=== PATIENT | male | born 1950 | race Caucasian/White ===

== ENCOUNTER 2018-09-01 08:51 | Inpatient (IN) ==
[2018-09-01] MEDS ORDERED: ZOFRAN IV ONE (11:47)
[2018-09-01] MEDS ORDERED: M.V.I.-12 10 ML, FOLIC ACID 1 MG, MAGNESIUM SULFATE 1 GM, THIAMINE 100 MG in NS 1,000 ML IV ONE (11:47)
[2018-09-01] MEDS ORDERED: DILAUDID IV ONE (11:47)
--- NOTE | 2018-09-01 12:22 | Diag Imaging Result Doc PS360 ---
EXAM: CHEST-PORTABLE 09/01/2018 HISTORY: FALL TECHNIQUE: AP portable at 1209 COMMENT: There is no evidence of acute cardiac or pulmonary disease. There are no previous studies available for comparison. IMPRESSION: No acute disease. Electronically signed by Mike Grove 09/01/2018 12:20 PM
--- NOTE | 2018-09-01 12:23 | Diag Imaging Result Doc PS360 ---
EXAM: XRAY PELVIS W/HIP 2-3VW RT 09/01/2018 HISTORY: fall TECHNIQUE: AP pelvis and right hip three views COMMENT: There is osteoporosis. There is an intertrochanteric fracture of the right femur. This is not significantly displaced. There is some stool in the rectum. IMPRESSION: Intertrochanteric fracture on the right. Electronically signed by Mike Grove 09/01/2018 12:21 PM
--- NOTE | 2018-09-01 12:31 | EKG Report ---
Test Performed on : 09/01/2018 09:40:25 AM Test Reason : FALL Blood Pressure : / mmHG Vent. Rate : 065 BPM Atrial Rate : 065 BPM P-R Int : 144 ms QRS Dur : 064 ms QT Int : 392 ms P-R-T Axes : 051 -39 068 degrees QTc Int : 407 ms Normal sinus rhythm. Left axis deviation Low voltage QRS Septal infarct , age undetermined Abnormal ECG No previous ECGs available Unconfirmed Result
[2018-09-01 12:44] LABS: URINE SOURCE CLEAN CATCH
[2018-09-01 12:50] LABS: BASO# 0.05 X1000 (0.0-0.2); BASO% 0.6 % (0.0-0.8); EOS# 0.06 X1000 (0.0-0.7); EOS% 0.7 % (0.0-10.0); HEMATOCRIT 42.2 % (42.0-52.0); HEMOGLOBIN 15.4 g/dL (14.0-18.0); IMM GRAN# 0.02 X1000 (0.0-0.04); IMM GRAN% 0.2 % (0.0-0.5); LYMPH# 1.43 X1000 (1.2-3.4); LYMPH% 16.5 % (20.5-51.1); MCH 32.5 PG (27-31); MCHC 36.5 g/dL (33-37); MONO# 0.65 X1000 (0.11-0.59); MONO% 7.5 % (1.7-9.3); MPV 9.8 FL (7.4-10.4); NEUT# 6.45 X1000 (1.4-6.5); NEUT% 74.5 % (42.2-75.2); PLT 209 X1000 (130-400); RBC 4.74 XMIL (4.7-6.1); RDW 12.9 % (11.5-14.5); WBC 8.66 X1000 (4.8-10.8)
[2018-09-01 12:51] LABS: BILIRUBIN URINE NEGATIVE (NEGATIVE); BLOOD URINE NEGATIVE (NEGATIVE); COLOR YELLOW; GLUCOSE URINE NEGATIVE (NEGATIVE); KETONE URINE 40 mg/dL (NEGATIVE); LEUKOCYTES URINE NEGATIVE (NEGATIVE); NITRITE URINE NEGATIVE (NEGATIVE); PH URINE 6.5; PROTEIN URINE NEGATIVE (NEGATIVE); TURBIDITY URINE CLEAR (CLEAR); UROBILINOGEN URINE NORMAL (NORMAL)
[2018-09-01 12:52] LABS: UR EPITHELIAL CELLS <10 /HPF (<10); URINE BACTERIA NEGATIVE /HPF; URINE RBC <10 /HPF (<10); URINE WBC <10 /HPF (<10)
[2018-09-01 13:01] LABS: UR AMPHETAMINES QUAL NONE DETECTED (NONE DETECT); UR BARBITUATES QUAL NONE DETECTED (NONE DETECT); UR BENZODIAZEPIN QUAL NONE DETECTED (NONE DETECT); UR CANNABINOIDS QUAL NONE DETECTED (NONE DETECT); UR COCAINE QUAL NONE DETECTED (NONE DETECT); UR METHADONE QUAL NONE DETECTED (NONE DETECT); UR OPIATES QUAL NONE DETECTED (NONE DETECT); UR OXYCODONE QUAL NONE DETECTED (NONE DETECT); UR PCP QUAL NONE DETECTED (NONE DETECT)
[2018-09-01 13:11] LABS: INR 0.93; PROTIME 13.3 Seconds (11.0-16.0)
[2018-09-01 13:12] LABS: AGAP 13; ALB/GLOB RATIO 1.3; ALBUMIN 4.1 g/dL (3.5-5.0); ALKALINE PHOSPHATASE 93 U/L (32-122); BUN 7 mg/dL (8-22); CHLORIDE 96 mmol/L (98-107); COSMO 263; CREATININE 0.7 mg/dL (0.7-1.2); ESTIMATED GFR > 60; GLUCOSE 108 mg/dL (70-104); GOT 46 U/L (10-34); GPT 43 U/L (10-44); MAGNESIUM 2.1 mg/dL (1.5-2.7); POTASSIUM 4.4 mmol/L (3.5-5.1); PTT 32.1 Seconds (22.3-41.8); SODIUM 132 mmol/L (136-145); TCO2 23 mmol/L (25-35); TOTAL PROTEIN 7.2 g/dL (6.3-8.3)
[2018-09-01] MEDS ORDERED: NICODERM PATCH TD ONE (13:20)
--- NOTE | 2018-09-01 13:22 | PROVIDER DOCUMENTATION ---
This chart was entered by Jackeline Hardy Scribe, acting as scribe for Gerry Lainez MD. HPI-Musculoskeletal Pain/Inj - GENERAL Chief Complaint: Fall Stated Complaint: FALL LAST NIGHT, RT HIP PAIN Time Seen by Provider: 09/01/18 11:36 Source: patient - HX OF PRESENT ILLNESS-MUSKULOSKELTAL Nature of Presenting Problem: Patient is a 68 year old male who presents to the ED via EMS with right hip pain after having a fall last night around 0. Report he was drinking last night and got up to use the restroom and fell landing on right hip. States he could not get up from the floor. Report numbness in bilateral feet. Denies back pain. Does not report head injury. Patient states his last ETOH drink was last night at 1900. Quality of Pain: reports: aching Severity in ED: mild Onset/Duration: last night (1899) Timing: still present Modifying Factors: improves with: nothing Any recent injury?: Yes (fall) Locality of Occurance: Home Similar Symptoms Previously?: Yes (present since last night ) Recently seen or treated by another doctor?: No - FALL INJURY Location of Pain/Injury: reports: other (right hip) Pain Radiation: reports: no radiation Reason for Fall: reports: unknown Symptoms prior to fall:: reports: none Loss of Consciousness: no loss of consciousness Injury Associated Symptoms: reports: unable to bear weight, trouble walking, other (numbness to bilateral feet) - HIP/PELVIS PAIN/INJURY Hip Pain Location: reports: hip (R) Pain Radiation: reports: no radiation Context / Method of Injury: reports: fall Associated Symptoms: reports: numbness in legs/feet (bilateral feet) - LOWER EXTREMITY PAIN/INJURY Lower Extremities Pain: hip: right Context / Method of Injury: reports: fell Associated Symptoms: reports: numbness in legs/feet (bilateral feet) Review of Systems - Adult - REVIEW OF SYSTEMS - ADULT Constitutional: reports: no symptoms reported. denies: chills, fever, fatique Eyes: reports: no symptoms reported Ears, Nose, Mouth & Throat: reports: no symptoms reported Cardiovascular: reports: no symptoms reported Respiratory: reports: no symptoms reported Gastrointestinal: reports: no symptoms reported Genitourinary: reports: no symptoms reported Musculoskeletal: reports: see HPI, other (right hip pain). denies: back pain, muscle aches, neck pain Integumentary: reports: no symptoms reported Neurological: reports: see HPI, numbness (bilateral feet). denies: dizziness/vertigo, headache/migraines, syncope Psychiatric: reports: no symptoms reported Endocrine: reports: no symptoms reported Hematologic/Lymphatic: reports: no symptoms reported Allergic/Immunologic: reports: no symptoms reported All Other Systems: Reviewed and Negative Past History - Adult - PAST MEDICAL HISTORY-ADULT Review of Records: reports: Nursing Assessment Review, Medications Reviewed, Social history reviewed & non-contributory. Major Childhood Illnesses: reports: denies history Cardiovascular: reports: denies history Respiratory: reports: denies history Gastrointestinal: reports: denies history Obstetrical/Gynecological: reports: denies history Genitourinary: reports: denies history Musculoskeletal: reports: denies history Neurological: reports: denies history Psychiatric: reports: denies history Endocrine/Immune: reports: denies history Other Conditions: reports: denies history - PRIOR SURGERIES/PROCEDURES Surgical/Procedure History: reports: reviewed, not pertinent, tonsillectomy - IMMUNIZATION STATUS Childhood Immunizations: See Nurse Assessment Flu Vaccine: See Nurse Assessment - FAMILY HISTORY Family History: reviewed, not pertinent - SOCIAL HISTORY Smoking: cigarettes, greater than 1 pack/day Provider spent 3-5 mins advising pt. on dangers of tobacco.: Discussed manners to quit use, and f/u contacts for add'l counseling. Substance Use: alcohol Alcohol Use Frequency: every day Number of drinks per typical drinking period:: 5-10 drinks Living Situation: alone Physical Exam-Injury Related - Physical Exam-Injury Related Initial Vital Signs Reviewed: Yes General Appearance: alert, no apparent distress. negative: lethargic, slow to respond Head, Ears, Nose, Mouth & Throat: moist mucous membranes. negative: angioedema, hearing deficit Respiratory: chest non-tender, lungs clear, normal breath sounds. negative: rhonchi, wheezing Cardiovascular: normal peripheral pulses, regular rate, rhythm. negative: tachycardia, systolic murmur Abdominal Exam: normal bowel sounds, non tender, soft. negative: guarding, rebound Back Exam: normal inspection, no CVA tenderness, no vertebral tenderness. negative: ecchymosis, muscle spasm Extremity: tenderness (right hip), other (decreased ROM to right hip due to pain). negative: erythema, swelling Integumentary: normal color, warm/dry. negative: ecchymosis, erythema, jaundice Neurologic: grossly normal. negative: aphasia, facial droop Psych/Mental Status: normal mood/affect, oriented x 3. negative: paranoid, tearful Progress - PLAN OF CARE/RESULTS Progress/Plan/Lab Results: Vital Signs - 8 hr 09/01/18 09:28 09/01/18 09:29 09/01/18 09:30 Temperature Pulse Rate Respiratory Rate Blood Pressure 140/107 O2 Sat by Pulse Oximetry 100 99 100 09/01/18 09:34 09/01/18 09:40 09/01/18 09:50 Temperature 98.6 F Pulse Rate 68 Respiratory Rate 17 Blood Pressure 140/107 O2 Sat by Pulse Oximetry 100 98 100 09/01/18 10:00 09/01/18 10:01 09/01/18 10:10 Temperature Pulse Rate Respiratory Rate Blood Pressure 161/88 O2 Sat by Pulse Oximetry 100 99 99 09/01/18 10:20 09/01/18 10:30 09/01/18 10:40 Temperature Pulse Rate Respiratory Rate Blood Pressure O2 Sat by Pulse Oximetry 100 99 99 09/01/18 10:50 09/01/18 11:00 09/01/18 11:01 Temperature Pulse Rate Respiratory Rate Blood Pressure 132/89 O2 Sat by Pulse Oximetry 100 99 99 09/01/18 11:10 09/01/18 11:20 09/01/18 11:30 Temperature Pulse Rate Respiratory Rate Blood Pressure O2 Sat by Pulse Oximetry 98 98 99 09/01/18 11:40 09/01/18 11:50 09/01/18 12:18 Temperature Pulse Rate Respiratory Rate Blood Pressure 118/76 O2 Sat by Pulse Oximetry 99 100 100 09/01/18 12:20 09/01/18 12:30 09/01/18 12:40 Temperature Pulse Rate Respiratory Rate Blood Pressure O2 Sat by Pulse Oximetry 98 98 97 09/01/18 12:50 09/01/18 13:00 09/01/18 13:01 Temperature Pulse Rate Respiratory Rate 15 Blood Pressure 137/77 O2 Sat by Pulse Oximetry 98 97 98 09/01/18 13:10 Temperature Pulse Rate Respiratory Rate Blood Pressure O2 Sat by Pulse Oximetry 96 Laboratory Results - last 24 hr 09/01/18 09/01/18 09/01/18 12:20 12:20 12:20 WBC 8.66 RBC 4.74 Hgb 15.4 Hct 42.2 MCV 89.0 MCH 32.5 H MCHC 36.5 RDW Std Deviation 12.9 Plt Count 209 MPV 9.8 Immature Gran % (Auto) 0.2 Neut % (Auto) 74.5 Lymph % (Auto) 16.5 L Fisher % (Auto) 7.5 Eos % (Auto) 0.7 Baso % (Auto) 0.6 Immature Gran # (Auto) 0.02 Neut # (Auto) 6.45 Lymph # (Auto) 1.43 Fisher # (Auto) 0.65 H Eos # (Auto) 0.06 Baso # (Auto) 0.05 PT INR PTT (Actin FS) Sodium 132 L Potassium 4.4 Chloride 96 L Carbon Dioxide 23 L Anion Gap 13 BUN 7 L Creatinine 0.7 Estimated GFR/1.73 m2 > 60 BUN/Creatinine Ratio 10 Glucose 108 H Calculated Osmolality 263 Calcium 9.0 Magnesium 2.1 Total Bilirubin 0.70 AST 46 H ALT 43 Alkaline Phosphatase 93 Troponin T Total Protein 7.2 Albumin 4.1 Globulin 3.1 Albumin/Globulin Ratio 1.3 Urine Source Urine Color Urine Turbidity Urine pH Ur Specific [place] Urine Protein Ur Glucose (Stick) Ur Ketones (Stick) Urine Blood Urine Nitrite Urine Bilirubin Urobilinogen Dipstick Urine Leukocytes Urine WBC (Auto) Urine RBC (Auto) U Epithel Cells (Auto) Urine Bacteria (Auto) Urine Opiates Screen Ur Oxycodone Screen Ur Methadone, Qual Ur Barbiturates Screen Ur Phencyclidine Scrn Ur Amphetamines Screen U Benzodiazepines Scrn Urine Cocaine Screen U Cannabinoids Screen Plasma/Serum Ethyl Alc 09/01/18 09/01/18 09/01/18 12:20 12:20 12:20 WBC RBC Hgb Hct MCV MCH MCHC RDW Std Deviation Plt Count MPV Immature Gran % (Auto) Neut % (Auto) Lymph % (Auto) Fisher % (Auto) Eos % (Auto) Baso % (Auto) Immature Gran # (Auto) Neut # (Auto) Lymph # (Auto) Fisher # (Auto) Eos # (Auto) Baso # (Auto) PT 13.3 INR 0.93 PTT (Actin FS) 32.1 Sodium Potassium Chloride Carbon Dioxide Anion Gap BUN Creatinine Estimated GFR/1.73 m2 BUN/Creatinine Ratio Glucose Calculated Osmolality Calcium Magnesium Total Bilirubin AST ALT Alkaline Phosphatase Troponin T < 0.010 Total Protein Albumin Globulin Albumin/Globulin Ratio Urine Source CLEAN CATCH Urine Color YELLOW Urine Turbidity CLEAR Urine pH 6.5 Ur Specific [place] 1.000 Urine Protein NEGATIVE Ur Glucose (Stick) NEGATIVE Ur Ketones (Stick) 40 A Urine Blood NEGATIVE Urine Nitrite NEGATIVE Urine Bilirubin NEGATIVE Urobilinogen Dipstick NORMAL Urine Leukocytes NEGATIVE Urine WBC (Auto) <10 Urine RBC (Auto) <10 U Epithel Cells (Auto) <10 Urine Bacteria (Auto) NEGATIVE Urine Opiates Screen Ur Oxycodone Screen Ur Methadone, Qual Ur Barbiturates Screen Ur Phencyclidine Scrn Ur Amphetamines Screen U Benzodiazepines Scrn Urine Cocaine Screen U Cannabinoids Screen Plasma/Serum Ethyl Alc 09/01/18 12:20 WBC RBC Hgb Hct MCV MCH MCHC RDW Std Deviation Plt Count MPV Immature Gran % (Auto) Neut % (Auto) Lymph % (Auto) Fisher % (Auto) Eos % (Auto) Baso % (Auto) Immature Gran # (Auto) Neut # (Auto) Lymph # (Auto) Fisher # (Auto) Eos # (Auto) Baso # (Auto) PT INR PTT (Actin FS) Sodium Potassium Chloride Carbon Dioxide Anion Gap BUN Creatinine Estimated GFR/1.73 m2 BUN/Creatinine Ratio Glucose Calculated Osmolality Calcium Magnesium Total Bilirubin AST ALT Alkaline Phosphatase Troponin T Total Protein Albumin Globulin Albumin/Globulin Ratio Urine Source Urine Color Urine Turbidity Urine pH Ur Specific [place] Urine Protein Ur Glucose (Stick) Ur Ketones (Stick) Urine Blood Urine Nitrite Urine Bilirubin Urobilinogen Dipstick Urine Leukocytes Urine WBC (Auto) Urine RBC (Auto) U Epithel Cells (Auto) Urine Bacteria (Auto) Urine Opiates Screen NONE DETECTED Ur Oxycodone Screen NONE DETECTED Ur Methadone, Qual NONE DETECTED Ur Barbiturates Screen NONE DETECTED Ur Phencyclidine Scrn NONE DETECTED Ur Amphetamines Screen NONE DETECTED U Benzodiazepines Scrn NONE DETECTED Urine Cocaine Screen NONE DETECTED U Cannabinoids Screen NONE DETECTED Plasma/Serum Ethyl Alc Orders Category Date Time Status Nursing- MD Consult Request ROUTINE Care 09/01/18 13:14 Active Saline Loc NOW Care 09/01/18 11:48 Active MD [Physician/Provider Consults] Routine Cons 09/01/18 13:13 Ordered CHEST-PORTABLE [RAD] Stat Exams 09/01/18 11:49 Completed XRAY PELVIS W/HIP 2-3VW RT [RAD] Stat Exams 09/01/18 11:47 Completed ALCOHOL BLOOD Stat Lab 09/01/18 12:20 Completed CBC WITH ELECTRONIC DIFF [HEME] Stat Lab 09/01/18 12:20 Completed COMPREHENSIVE METABOLIC PANEL [CHEM] Stat Lab 09/01/18 12:20 Completed LACTATE, PLASMA [CHEM] Stat Lab 09/01/18 11:49 Uncollected MAGNESIUM [CHEM] Stat Lab 09/01/18 12:20 Completed PROTIME WITH INR [COAG] Stat Lab 09/01/18 12:20 Completed PTT [COAG] Stat Lab 09/01/18 12:20 Completed TROPONIN T Stat Lab 09/01/18 12:20 Completed URINALYSIS W/POSS RFLX CULT [URINALYSIS] Stat Lab 09/01/18 12:20 Completed URINE DRUG SCREEN Stat Lab 09/01/18 12:20 Completed Hydromorphone [Dilaudid] Med 09/01/18 11:47 Discontinued 0.5 mg IV NOW ONE Mvi [M.v.i.-12] 10 ml Med 09/01/18 11:47 Discontinued Folic Acid 1 mg Magnesium Sulfate 1 gm Thiamine 100 mg 0.9% Sodium Chloride Inj [Ns] 1,000 ml IV NOW Ondansetron [Zofran] Med 09/01/18 11:47 Discontinued 4 mg IV NOW ONE EKG [EKG] Stat Ther 09/01/18 11:48 Draft Result Diagrams: 09/01/18 12:20 09/01/18 12:20 - EKG 1 Time of EKG reading by physician:: 09:40 EKG Read and Signed by:: Gerry Lainez EKG Interpretation (*Must complete 3 of following elements*): Abnormal Rate: 65 Rhythm: normal sinus rhythm [place]: left QRS: other (low voltage) Comments: septal infarct, age undetermined - XRAY 1 XRAY: Right XRAY Study: Pelvis, Hip Impression: See EMR Report (EXAM: XRAY PELVIS W/HIP 2-3VW RT 09/01/2018 HISTORY: fall TECHNIQUE: AP pelvis and right hip three views COMMENT: There is osteoporosis. There is an intertrochanteric fracture of the right femur. This is not significantly displaced. There is some stool in the rectum. IMPRESSION: Intertrochanteric fracture on the right. Electronically signed by Mike Grove 09/01/2018 12:21 PM 09/01/18 1221 Interpreting Physician: Mike Grove MD Dictated Date/Time: 09/01/18 1220 cc: Gerry Lainez MD; None,PCP) 2 XRAY Study: Chest Impression: See EMR Report ( EXAM: CHEST-PORTABLE 09/01/2018 HISTORY: FALL TECHNIQUE: AP portable at 1209 COMMENT: There is no evidence of acute cardiac or pulmonary disease. There are no previous studies available for comparison. IMPRESSION: No acute disease. Electronically signed by Mike Grove 09/01/2018 12:20 PM 09/01/18 1220 Interpreting Physician: Mike Grove MD Dictated Date/Time: 09/01/18 1219 cc: Gerry Lainez MD; None,PCP) - CONSULTS/PCP/HOSPITALIST Notification #1 *Consult/PCP/Hospitalist*: Dr. uW Time Discussed: 13:09 Reason/Comments: Dr. Lainez consulted with Dr. Wu about patient. Consult Disposition: other (states he will consult on patient.) #2 Consult: MICHAEL Prabhakar for Hospitalist Time Discussed: 13:10 (Dr. Cardenas accepted admit) Reason/Comments: Dr. Lainez consulted with Aki about patient. Consult Disposition: Will see in ED, Admit Departure - Departure Date of Disposition Decision: 09/01/18 Time of Disposition Decision: 13:10 DIAGNOSIS: Closed right hip fracture, Intertrochanteric fracture of right hip, Alcoholism, Smoker Disposition: ADMITTED INPATIENT 09 Certified Medical Emergency: Emergent Condition: Good Referrals and Follow-Ups: None,PCP [Primary Care Provider] - - Critical Care Note This patient required my direct & personal management of CC.: No Attestation - Physician/ CINDY Attestation The physician spent face to face time with patient:: Yes Advanced Practice Provider documentation review:: Supervising physician onsite and consulted in the evaluation and care of this patient. The physician did have a face to face encounter with the patient. This chart was documented by the indicated scribe, (Jackeline Hardy Scribe) and a ccurately reflects the services I performed and decisions made by me, Gerry Lainez MD, as attested by the provider's signature.
--- NOTE | 2018-09-01 14:43 | ORTHOPAEDICS CONSULTATION ---
DATE: 09/01/2018 CHIEF COMPLAINT: Fall. HISTORY OF PRESENT ILLNESS: This is a 68-year-old male who presented to the emergency department today with right hip pain after falling last night. He reports he has been drinking a little bit of alcohol last night and he got up to go to the bathroom and he fell landing on his right hip. He reports he couldn't get up off the floor without assistance. He denies back pain, chest pain, shortness of breath, head injury, or any other types of problems at this time. The patient reports that he drinks about a 12 pack every 2 to 3 days of beer. PAST MEDICAL HISTORY: The patient denies past medical history and he reports he is an avid drinker. PAST SURGERIES: He has had a tonsillectomy. SOCIAL HISTORY: He smokes cigarettes greater than 1 pack a day. He drinks about a 12 pack over 2 to 3 days of beer and he denies drug use. PHYSICAL EXAMINATION: General: Patient is awake and alert and oriented x3. He is slightly lethargic and sleepy. Mucous membranes are moist. Pupils are equal and reactive. Cardiovascular: Regular rate and rhythm. Abdominal: Abdomen soft, nontender. Lower. Extremity: Right lower extremity exam: There is some swelling and tenderness to the right lateral hip. The right lower extremity is shortened and externally rotated. There is good pedal pulses. There is good capillary refill. There is good sensation for right lower extremity. The patient can wiggle his toes upon command. ASSESSMENT: Right intertrochanteric femur fracture. PLAN: We plan on doing a trochanteric fixation nail today at around 4:30 p.m. The patient agrees with this plan. The risks, benefits of surgery was went over with the patient. The risks include , damage to tendon, nerve or blood vessel, and infection. The patient agrees to proceed. . Dictated by MICHAEL Yan for Otis Wu MD cc: MICHAEL Yan MD
[2018-09-01] MEDS ORDERED: MORPHINE IV PRN ×2 (15:04→18:06)
[2018-09-01] MEDS ORDERED: NS 1,000 ML IV ONE (15:04)
[2018-09-01] MEDS ORDERED: ZOFRAN IV PRN ×2 (15:04→18:06)
[2018-09-01] MEDS ORDERED: LIBRIUM PO PRN (15:07)
[2018-09-01] MEDS ORDERED: XYLOCAINE-MPF 2% ONE (15:25)
[2018-09-01] MEDS ORDERED: DIPRIVAN 1% ONE (15:25)
[2018-09-01] MEDS ORDERED: ROBINUL ONE (15:25)
[2018-09-01] MEDS ORDERED: KEFZOL 2 GM/D5W 2 GM/50 ML IVPB ONE (16:20)
--- NOTE | 2018-09-01 16:34 | HISTORY AND PHYSICAL ---
CHIEF COMPLAINT: Fall with right hip pain. HISTORY OF PRESENT ILLNESS: Mr. Sol is a 68-year-old male with a history of alcohol and nicotine dependence, no other stated medical problems, who presents status post mechanical fall last night. He reports he had about four or five beers to drink and he was trying to stand up and accidentally tripped and hit the right side of his body and immediately began experiencing right hip pain. He lives alone. Nobody was able to come to his side. He was finally able to drag himself to a phone some time today and call an ambulance. He was brought to our ER and hip x-ray showed an intertrochanteric fracture on the right. He is scheduled for trochanteric fixation now today at 4:[address] Wu. He denies any other complaints at this time. He denies any head trauma or loss of consciousness. No chest pain, shortness of breath, lower extremity edema, fever, chills, cough, or congestion. He will be admitted for further treatment and evaluation. PAST MEDICAL HISTORY: 1. Alcohol dependence. 2. Nicotine dependence. PAST SURGICAL HISTORY: He has had a tonsillectomy. SOCIAL HISTORY: He drinks about a six-pack a day. He smokes a pack a day. He denies drug use. He is /. He has seven children. He is retired from the air conditioning business. FAMILY HISTORY: Father from lung cancer. Mother is still alive. He is unsure what medical problems she has. REVIEW OF SYSTEMS: A 14-point review of systems was obtained and found to be negative with the exception of the HPI. ALLERGIES: No known drug allergies. HOME MEDICATIONS: None. PHYSICAL EXAMINATION: VITAL SIGNS: Blood pressure 137/77; heart rate is 68; respiratory rate 15; 02 saturation 98% on room air; temperature 98.6. GENERAL: This is a thin, frail appearing 68-year-old male lying in the hospital bed in no acute distress. NEUROLOGICAL: He is oriented. Follows commands without focal deficits. HEENT: Head is atraumatic and normocephalic. His pupils are equal, round and reactive to light. His oral mucosa is dry. NECK: Trachea is midline. There is no JVD. CHEST: Diminished at the bases but clear to auscultation bilaterally. CARDIOVASCULAR: Regular rate and rhythm. S1 and S2 are noted. There are no murmurs. GASTROINTESTINAL: Soft. Nondistended. Nontender. Bowel sounds are active. EXTREMITIES: Right lower extremity externally rotated and shortened. Pulses palpable at 1+ bilaterally. No edema. DIAGNOSTIC DATA: Hip and pelvis x-ray shows intertrochanteric fracture of the right. There is osteoporosis. Chest x-ray with no acute disease. EKG shows normal sinus rhythm without acute ST or T abnormalities. WBC 8.66, hemoglobin 15.4, hematocrit 42.2, platelet count 209,000, INR 0.93. Sodium 132, potassium 4.4, chloride 96, C02 23, anion gap 13, BUN 7, creatinine 0.7, glucose 108, magnesium 2.1, AST 46, ALT 43, alkaline phosphatase 93. Troponin negative. Protein 7.2. Albumin 4.1, UA is negative; it does reveal 40 ketones. Toxicology screen is negative. ASSESSMENT AND PLAN: 1. Right hip fracture: The patient is scheduled for nail fixation today by Dr. Wu. He is n.p.o. Will continue pain medicine, intravenous fluids, and immobilization until after surgery. Social Work has been consulted for rehab placement and will defer to Orthopedics as to when Physical Therapy should be consulted. 2. Hyponatremia: Likely hypovolemic secondary to poor nutritional status and alcohol use. Will continue intravenous fluids and check another sodium tomorrow. 3. Alcohol and nicotine dependence: We have advised the patient highly against any use of these type of products. Will write a nicotine patch and banana bag daily as needed. Chlordiazepoxide for alcohol withdrawal and check a B12, folate, and thyroid. 4. Deep venous thrombosis prophylaxis once surgery has been completed. Further recommendations to follow. Dictated by MICHAEL Leslie for Romina Cardenas MD cc: MICHAEL Leslie MD
[2018-09-01] MEDS ORDERED: OFIRMEV 1000 MG/ISOTONIC SOLN 1,000 MG/100 ML BOTTLE ONE (16:38)
[2018-09-01] MEDS ORDERED: TORADOL ONE (16:38)
[2018-09-01] MEDS ORDERED: DECADRON ONE (16:38)
[2018-09-01] MEDS ORDERED: ZOFRAN ONE (16:38)
[2018-09-01] MEDS ORDERED: NS 1,000 ML ONE (17:27)
[2018-09-01] MEDS: DILAUDID ONE ×2 (17:39→17:48)
[2018-09-01] MEDS ORDERED: MILK OF MAGNESIA PO PRN (18:06)
[2018-09-01] MEDS ORDERED: HALDOL IV PRN (18:15)
--- NOTE | 2018-09-01 18:38 | OPERATIVE NOTE ---
PROCEDURE DATE: 09/01/2018 PREOPERATIVE DIAGNOSIS: Right intertrochanteric hip fracture. POSTOPERATIVE DIAGNOSIS: Right intertrochanteric hip fracture.. PROCEDURE: Right Trochanteric Fixation Nail fixation of the hip. SURGEON: Nelli Wu MD. SINGLE STAYER OPERATOR: MICHAEL Yan. Mr. Claire was necessary for retraction and manipulation of the leg. ANESTHESIA: General. COMPLICATION: None. PROCEDURE IN DETAIL: A 68-year-old male presents for a right TFN fixation of his hip. Risks and benefits were discussed with the patient preoperatively, and he was willing to proceed. He was taken to the operating room and satisfactory anesthesia obtained. The right leg was prepped and draped on the Monroe table in the usual sterile fashion. A time-out was taken to confirm operative site, procedure, and patient. The C-arm was used to verify anatomic reduction of the hip. A 1- inch lateral incision was made proximal to the greater trochanter, and dissection carried down through the incision to the tip of the trochanter. A guide pin was advanced through the tip of the trochanter down the intramedullary canal. This was reamed with the entry reamer. The guide pin was removed and a long ball-tip guidewire was inserted down the shaft of the femur. A 400 length implant was selected using C-arm to reference the length of the leg. A 12 mm reamer was reamed over the guidewire and an 11 x 400 TFN nail was inserted down the guidewire, and guidewire removed. The C-arm was used to visualize the proximal part of the hip and the accessory guide for the helical blade advanced down to the bone through a small stab incision laterally. A 100 length helical blade was then inserted after positioning a guidewire across the nail and into the central aspect of the femoral neck and femoral head, with care taken to avoid any articular penetration. This was fully seated and the proximal guide removed from the TFN after setting the antirotation screw. This completed the proximal alignment. Rotation was set as well as leg length using the [place] table to avoid any deformity, and a distal interlocking screw placed with perfect [place] technique through a small stab wound laterally above the knee using the C-arm. A 46 length screw was placed across the nail in the dynamic slot under image guidance. Afterwards, the C-arm was used to verify accurate fracture reduction and hardware placement. The wounds were irrigated and closed in layers with 2-0 Vicryl and skin kraig. Sterile dressings completed the closure, and the patient was recovered from anesthesia and transferred to the recovery room in stable condition. No intraoperative complications were noted. Instrument count and sponge count were correct at the time of closure. cc: Otis Wu MD
[2018-09-01] MEDS ORDERED: FLU VACCINE IM ONE (18:53)
[2018-09-01] MEDS: NS 1,000 ML IV SCH (18:55)
[2018-09-01] MEDS: COLACE PO SCH (21:05)
[2018-09-01] MEDS: TYLENOL PO SCH (21:05)
[2018-09-02 00:37] LABS: URINE SOURCE CATH
[2018-09-02 00:42] LABS: BILIRUBIN URINE NEGATIVE (NEGATIVE); BLOOD URINE TRACE (NEGATIVE); COLOR YELLOW; GLUCOSE URINE NEGATIVE (NEGATIVE); KETONE URINE 20 mg/dL (NEGATIVE); LEUKOCYTES URINE NEGATIVE (NEGATIVE); NITRITE URINE NEGATIVE (NEGATIVE); PROTEIN URINE TRACE mg/dL (NEGATIVE); SP GRAVITY URINE 1.027; TURBIDITY URINE CLEAR (CLEAR); UR EPITHELIAL CELLS <10 /HPF (<10); URINE BACTERIA NEGATIVE /HPF; URINE WBC <10 /HPF (<10); UROBILINOGEN URINE NORMAL (NORMAL)
[2018-09-02] MEDS: KEFZOL 1 GM/D5W 1 GM/50 ML IVPB IV SCH ×2 (00:59→09:14)
[2018-09-02] MEDS: TYLENOL PO SCH ×3 (05:05→21:45)
[2018-09-02] MEDS: XARELTO PO SCH (05:05)
[2018-09-02] MEDS: NS 1,000 ML IV SCH (06:30)
[2018-09-02 07:04] LABS: HEMATOCRIT 34.6 % (42.0-52.0); HEMOGLOBIN 12.3 g/dL (14.0-18.0); MCH 33.2 PG (27-31); MCHC 35.5 g/dL (33-37); MCV 93.3 FL (81-99); RBC 3.71 XMIL (4.7-6.1); RDW 13.3 % (11.5-14.5); WBC 7.33 X1000 (4.8-10.8)
[2018-09-02 07:22] LABS: AGAP 9; BUN 8 mg/dL (8-22); CALCIUM 8.3 mg/dL (8.8-10.2); CHLORIDE 97 mmol/L (98-107); COSMO 260; CREATININE 0.7 mg/dL (0.7-1.2); ESTIMATED GFR > 60; GLUCOSE 156 mg/dL (70-104); POTASSIUM 4.2 mmol/L (3.5-5.1); SODIUM 129 mmol/L (136-145); TCO2 23 mmol/L (25-35)
[2018-09-02] MEDS: NICODERM PATCH TD SCH (09:14)
[2018-09-02] MEDS: OXY IR PO PRN (09:14)
[2018-09-02] MEDS: FERROUS SULFATE PO SCH (09:15)
[2018-09-02] MEDS: PERIDEX MT SCH ×2 (09:15→21:45)
--- NOTE | 2018-09-02 13:58 | ORTHOPAEDICS PROGRESS NOTE ---
DATE: 09/02/2018 Mr. Sol seen status post TFN fixation of his right hip. He is stable at the present time. He is afebrile. He appears to be motor and sensory intact. He can be mobilized full weightbearing with therapy. He can be transferred home or to rehab tomorrow or after pending his mobilization and mobility status. I will need to follow up with him in roughly 10 days for staple removal[address] Dr. Sosa will be available over the holiday weekend for any additional orthopedic concerns if needed. cc: Otis Wu MD
--- NOTE | 2018-09-02 19:45 | PROGRESS NOTE ---
DATE: 09/02/2018 SUBJECTIVE: The patient is resting in a chair. He states that he is kind of slow to get up but states that he will continue to try to do so. OBJECTIVE: Vital Signs: Temperature 98.4 degrees, blood pressure 115/55, heart rate 61, respirations 18, O2 saturation 98% on room air. General: This is an elderly male sitting in a chair, in no acute distress. Heart: S1, S2 normal. Regular rate and rhythm. Lungs: Clear to auscultation bilaterally. No wheezing. No rales. No rhonchi. Abdomen: Positive bowel sounds. Soft, nontender, nondistended. Extremities: No edema. No cyanosis. Neurologic: The patient is alert and oriented x4. LABORATORIES: Sodium 129, potassium 4.2, chloride 97, CO2 of 23, BUN 8, creatinine 0.7, glucose 156, magnesium 2.2. White blood cell count 7.3, hemoglobin 12, hematocrit 34, platelets 158,000. ASSESSMENT AND PLAN: 1. Status post right trochanteric fixation nailing of the hip. Management as per the orthopedic surgeon. 2. Hyponatremia. We will discontinue the normal saline and repeat the sodium in the morning. 3. Alcohol dependence. Continue to monitor the patient for signs of withdrawal. The patient has p.r.n. Librium ordered. 4. Deep vein thrombosis prophylaxis. The patient is on Xarelto. cc: Romina Cardenas MD
[2018-09-02] MEDS: COLACE PO SCH (21:45)
[2018-09-03] MEDS: TYLENOL PO SCH ×3 (06:00→20:26)
[2018-09-03] MEDS: XARELTO PO SCH (06:00)
[2018-09-03 06:52] LABS: HEMATOCRIT 33.4 % (42.0-52.0); HEMOGLOBIN 11.7 g/dL (14.0-18.0); MCH 33.1 PG (27-31); MCV 94.4 FL (81-99); RBC 3.54 XMIL (4.7-6.1); RDW 13.2 % (11.5-14.5); WBC 6.4 X1000 (4.8-10.8)
[2018-09-03 07:28] LABS: AGAP 8; BUN 7 mg/dL (8-22); CALCIUM 8.5 mg/dL (8.8-10.2); CHLORIDE 103 mmol/L (98-107); COSMO 271; CREATININE 0.7 mg/dL (0.7-1.2); ESTIMATED GFR > 60; GLUCOSE 92 mg/dL (70-104); POTASSIUM 4.2 mmol/L (3.5-5.1); SODIUM 137 mmol/L (136-145); TCO2 26 mmol/L (25-35)
[2018-09-03] MEDS: NICODERM PATCH TD SCH (09:51)
[2018-09-03] MEDS: PERIDEX MT SCH ×2 (09:52→20:26)
[2018-09-03] MEDS: FERROUS SULFATE PO SCH (09:52)
[2018-09-03] MEDS: OXY IR PO PRN (09:53)
--- NOTE | 2018-09-03 10:27 | PROGRESS NOTE ---
DATE: 09/03/2018 SUBJECTIVE: Surjit Sol is a 68-year-old male, 2 days post right TFN. He has no complaints. OBJECTIVE: General: He is a well-developed, well-nourished male. He is alert, oriented, and cooperative with exam. Extremities: His leg is neurovascularly intact. He has a soft calf. No sign of DVT or infection. His wounds are clean, dry and intact. ASSESSMENT: Stable right hip. PLAN: We will continue working with physical therapy. He will likely go home versus rehab either tomorrow or Wednesday. Dr. Be will resume seeing him on Wednesday if he is still here. cc: Toni Sosa MD
--- NOTE | 2018-09-03 18:20 | PROGRESS NOTE ---
DATE: 09/03/2018 SUBJECTIVE: The patient is resting comfortably in bed in no acute distress. OBJECTIVE: Vital Signs: Temperature 99.6, blood pressure 104/65, heart rate 67, respirations 20, O2 saturation 98% on room air. General: This is an elderly male lying in bed in no acute distress. Heart: S1, S2 normal. Regular rate and rhythm. Lungs: Clear to auscultation bilaterally. Abdomen: Positive bowel sounds. Soft, nontender, nondistended. Extremities: No edema. No cyanosis. Neurologic: The patient is alert and oriented x3. LABS: Reviewed. ASSESSMENT AND PLAN: 1. Status post right trochanteric fixation nailing of the hip. Management as per the orthopedic surgeon. 2. Hyponatremia, resolved. 3. Constipation. Will start the patient on lactulose and MiraLAX. 4. Alcohol abuse. Continue on Librium as needed. 5. Deep vein thrombosis prophylaxis. Continue on Xarelto. cc: Romina Cardenas MD
[2018-09-03] MEDS: COLACE PO SCH (20:26)
[2018-09-03] MEDS ORDERED: MIRALAX PO SCH (21:00)
[2018-09-03] MEDS ORDERED: LACTULOSE PO SCH (21:00)
[2018-09-04] MEDS: OXY IR PO PRN ×2 (05:05→19:03)
[2018-09-04] MEDS: TYLENOL PO SCH ×3 (05:06→19:03)
[2018-09-04] MEDS: XARELTO PO SCH (05:06)
[2018-09-04 06:55] LABS: HEMATOCRIT 31.5 % (42.0-52.0); HEMOGLOBIN 10.9 g/dL (14.0-18.0); MCHC 34.6 g/dL (33-37); MCV 95.5 FL (81-99); RBC 3.3 XMIL (4.7-6.1); RDW 13.4 % (11.5-14.5); WBC 6.17 X1000 (4.8-10.8)
[2018-09-04 07:19] LABS: AGAP 7; BUN 7 mg/dL (8-22); CALCIUM 8.4 mg/dL (8.8-10.2); CHLORIDE 104 mmol/L (98-107); COSMO 272; CREATININE 0.7 mg/dL (0.7-1.2); ESTIMATED GFR > 60; GLUCOSE 97 mg/dL (70-104); POTASSIUM 4.2 mmol/L (3.5-5.1); SODIUM 137 mmol/L (136-145); TCO2 26 mmol/L (25-35)
--- NOTE | 2018-09-04 08:06 | PROGRESS NOTE ---
DATE: 09/04/2018 SUBJECTIVE: Surjit Sol is a 68-year-old male who had a right TFN by Dr. Wu on 09/01/2018. He has no complaints. He is resting comfortably. OBJECTIVE: He is a well-developed, well-nourished male. He is alert and cooperative with the exam. His vital signs are stable. He is afebrile. His hematocrit is 31.5. His hemoglobin is 10.9. He walked 20 feet with Physical Therapy yesterday. His wounds are clean, dry, and intact without sign of infection. His leg is neurovascularly intact without sign of deep venous thrombosis. ASSESSMENT: Stable right TFN. PLAN: He will continue to work with Physical Therapy. The plan is for him to likely go to rehab the first part of the week. Dr. Wu will return to follow him tomorrow. cc: Toni Sosa MD
[2018-09-04] MEDS: NICODERM PATCH TD SCH (09:38)
[2018-09-04] MEDS: FERROUS SULFATE PO SCH (09:38)
[2018-09-04] MEDS: PERIDEX MT SCH ×2 (09:39→21:59)
--- NOTE | 2018-09-04 12:32 | PROGRESS NOTE ---
DATE: 09/04/2018 SUBJECTIVE: The patient is resting comfortably. He is having bowel movement. OBJECTIVE: Vital Signs: Temperature is 97.5 degrees, blood pressure 125/87, heart rate 68, respirations 19, O2 saturations 100% on room air. General: This is an elderly male lying in bed in no acute distress. Heart: S1, S2. Normal. Lungs: Clear to auscultation bilaterally. Abdomen: Positive bowel sounds. Soft, nontender, nondistended. Extremities: No edema. No cyanosis. Neurologic: The patient is alert and oriented x3. LABORATORY DATA: Reviewed. ASSESSMENT AND PLAN: 1. Status post right trochanteric fixation nailing of the hip. Management as per the orthopedic surgeon. 2. Constipation. Resolved. 3. Alcohol abuse. Aware. Continue with Librium as needed. 4. Deep vein thrombosis prophylaxis. Continue on Xarelto. 5. Disposition. The patient can be discharged once cleared by the orthopedic surgeon. cc: Romina Cardenas MD MTDD
[2018-09-04] MEDS: COLACE PO SCH (21:59)
[2018-09-05] MEDS: TYLENOL PO SCH ×2 (04:11→11:57)
[2018-09-05] MEDS: XARELTO PO SCH (05:48)
[2018-09-05] MEDS: OXY IR PO PRN ×2 (05:49→11:57)
[2018-09-05 07:33] VITALS: BP 151/78
[2018-09-05] MEDS: NICODERM PATCH TD SCH (11:58)
[2018-09-05] MEDS: FERROUS SULFATE PO SCH (11:58)
[2018-09-05] MEDS: PERIDEX MT SCH (11:58)
== END 2018-09-05 18:33 | disposition home health service (06) | DRG 481 ==
LOC: SUPCPDRO → EDBD → ED 08:51 → EDIPHOLD 14:14 → 4N 16:31
PROVIDERS: ATTEND Internal Medicine
CPT/HCPCS: 51702; 71010; 71045; 73502; 80048; 80053; 80101; 80301; 80307; 80320; 80324; 80345; 80346; 80353; 80358; 80361; 80365; 81001; 82055; 82550; 83605; 83735; 83992; 84484; 85025; 85027; 85610; 85730; 93005; 94760; 94761; 94799; 96365; 96375; 97116; 97162; 97530; 99285; A9270; G0431; G0434; G0479; G0480; G6040; J0131; J0690; J1100; J1170; J1885; J2270; J2405; J3411; J3475; J7030